=== PATIENT | female | born 1985 | race Caucasian/White ===

== ENCOUNTER → 2023-12-22 07:56 | Outpatient (REF) | payer BC, SELFPAY | LOC: CPAP 07:56 | PROVIDERS: ATTENDING PHYSICIAN Obstetrics & Gynecology Gynecology | DX: Z01.419 Encounter for gynecological examination (general) (routine) without abnormal findings (principal); N87.9 Dysplasia of cervix uteri, unspecified | CPT/HCPCS: 87624; G0123 ==

== ENCOUNTER → 2024-08-07 09:00 | Outpatient (REF) | payer BC, SELFPAY | LOC: CPAP 09:00 | PROVIDERS: ATTENDING PHYSICIAN Obstetrics & Gynecology Gynecology | DX: N89.3 Dysplasia of vagina, unspecified (principal) | CPT/HCPCS: 87624 ==

== ENCOUNTER → 2024-08-09 05:18 | Outpatient (REF) | payer BC, SELFPAY ==
[2024-08-09 08:50] LABS: FSH 8.3 mIU/ml
== END ==
LOC: REG 05:18
PROVIDERS: ATTENDING PHYSICIAN Obstetrics & Gynecology Gynecology
DX: N95.1 Menopausal and female climacteric states (principal)
CPT/HCPCS: 36415; 82670; 83001; 83002

== ENCOUNTER → 2024-12-27 07:54 | Outpatient (REF) | payer BC, SELFPAY | LOC: CPAP 07:54 | PROVIDERS: ATTENDING PHYSICIAN Obstetrics & Gynecology Gynecology | DX: Z01.419 Encounter for gynecological examination (general) (routine) without abnormal findings (principal) | CPT/HCPCS: G0123 ==